=== PATIENT | female | born 1960 | race Caucasian/White ===

== ENCOUNTER 2023-11-24 18:25 | Emergency (ER) | payer OTHER ==
[~2023-11-24] VITALS: Ht 157.5 cm; Wt 57.2 kg
[2023-11-24 20:39] VITALS: BP 167/92; TEMP 98; O2SAT 98
== END 2023-11-24 20:40 | disposition home or self-care (01) ==
LOC: ER 18:33
DX: Z04.1 Encounter for examination and observation following transport accident (principal); I10 Essential (primary) hypertension; V89.2XXA Person injured in unspecified motor-vehicle accident, traffic, initial encounter; Y93.89 Activity, other specified; Y92.89 Other specified places as the place of occurrence of the external cause; Y99.8 Other external cause status
CPT/HCPCS: 71045-TC; 73110